=== PATIENT | female | born 1980 | race Two or more races ===

== ENCOUNTER 2024-05-30 12:58 | Outpatient (AMB) | payer OTHER, SELFPAY ==
--- NOTE | 2024-05-30 13:00 | AM.OFFWIN_ITS ---
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 While every effort has been made to ensure accuracy, echo technician errors may have been included. The patient is a 44 year old female who presents to the clinic today with 17 days menstruation. She reports that she was worried about bleeding for a prolonged period of time, and on MondayMay 24, she was seen in the emergency room as a result. She had labs obtained including a CBC which was normal and negative for anemia, as well as a test which was negative. She was evaluated by a leaf tier who did a pelvic exam and advised her that she may be perimenopausal. She was advised to follow up with her primary care or gynecology. She is in the process of switching primary care providers, and has a new patient visit established for June 13 with her new primary care provider. On calling her primary care office about the follow up, she was advised to be seen in the walk-in clinic. She continues to bleed routinely, but it is not a heavy flow. She denies any cramping, pain, fever, or other vaginal discharge. She does report that her sister had a hysterectomy at 43 years old but that was related to abnormal cells. She herself has had an abnormal Pap smear in the past approximately 2 years ago, but in the last couple [facility] which was normal. She denies lightheadedness dizziness. PFSH Social History Patient Tobacco Use Status: Former Tobacco user Review of Systems Const All systems reviewed & are unremarkable except as noted in HPI and below Physical Exam Vital Signs: Last Vital Signs Pulse 76 05/30/24 13:01 BP 122/84 05/30/24 13:01 Pulse Ox 99 05/30/24 13:01 Oxygen Delivery Method Room Air 05/30/24 13:01 BMI result Body Mass Index 25.6 Const General: cooperative, healthy appearing, comfortable, no acute distress and well developed Orientation/consciousness: patient oriented x3 Limitations: no limitations Eyes General: appearance normal, both eyes and all related structures Neck Neck: Yes normal visual inspection Resp Effort & Inspection: normal respiratory effort and able to speak in complete sentences Auscultation: clear to auscultation bilaterally Cardio Rate: regular rate Rhythm: regular rhythm Heart sounds: normal S1 and S2 GI Inspection: Yes normal to inspection Palpation (GI): Soft to palpation and nontender Skin General skin exam: no rashes or lesions noted Neuro General: patient oriented x3 Extrem General: Yes normal to inspection Assessment & Plan Assessment & Plan (1) Menorrhagia: Code(s): N92.0 - Excessive and frequent menstruation with regular cycle Qualifiers: Menorrhagia type: premenopausal Qualified Code(s): N92.4 - Excessive bleeding in the premenopausal period Plan: test has already been obtained by the emergency room, so we deferred repeating that at this time as well as CBC which was recently obtained and normal. Reviewed reason to seek re-evaluation and emergency room including soaking through 1 heavy pad or tampon in 1 hour with or without symptoms of lightheadedness or dizziness. Advised patient to keep appointment with PCP. 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 Given that this is a walk-in clinic we are unable to order pelvic ultrasound for this condition due to lack of available follow up. We are reassured by the fact that her appointment with her primary care is 2 weeks from today. Advised patient that she may contact the office to determine if there is a cancellation that she may be able to be seen sooner. Advised follow up as needed with worsening symptoms. Advised patient to consider NSAIDs should she develop cramping. Plan See above for full details and plan. Coding Level of Care Code Est Pt Level 3 (70620) Diagnoses Excessive bleeding in premenopausal period N92.4 Menorrhagia type: premenopausal
[2024-05-30 13:01] VITALS: BP 122/84; PULSE 76; O2SAT 99; BMI 25.6
== END 2024-05-30 13:52 | disposition home or self-care (01) ==
PROVIDERS: Visit Provider Registered Nurse
DX: N92.4 Excessive bleeding in the premenopausal period (principal)

== ENCOUNTER → 2024-05-30 12:58 | Outpatient (BNVA) | payer OTHER, SELFPAY | PROVIDERS: Visit Provider Registered Nurse | DX: N92.4 Excessive bleeding in the premenopausal period (principal) | CPT/HCPCS: 99212 ==

== ENCOUNTER 2024-06-13 13:11 | Outpatient (AMB) | payer OTHER, SELFPAY ==
--- NOTE | 2024-06-13 13:03 | MHC.PC.OV ---
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 Intake Note: New patient visit Crnp Required: No Allergies No Known Allergies Allergy (Verified 06/13/24 13:17) Medication List - Last Reconciled 06/13/24 by Va Fleming PA-C No Known Home Meds Tobacco use date assessed: 06/13/24 Dental Screening Dental Screen Date: 06/13/24 Did you have a dental visit in the last 12 months?: No Did you have a dental problem in the last 6 months where you did not have access to dental care?: No Was dental information given to patient?: Patient has dentist HPI 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 I recently received a message from urgent care requesting a referral to Gynecology for patient's menorrhagia as she did not previously have a PCP. This was placed on 06/03 and she is booked for 07/15. She states she recently had a period for 25 days. She has never had an abnormal period or period like this in past. 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 She states that this has been giving her some stress. Sister has stage 1 breast ca at 45. She is BRCA negative. Father had lupus and hypothyroid and MA. [facility] Medical History (Updated 06/13/24 @ 13:38 by Va Fleming PA-C) Gestational diabetes Surgical History (Updated 06/13/24 @ 13:21 by Yane Andrade CMA) H/O section S/P removal of left ovary Family History (Updated 06/13/24 @ 13:20 by Yane Andrade CMA) Father HTN (hypertension) Heart attack Rosanna's disease Lupus (systemic lupus erythematosus) Mother HTN (hypertension) Sister Breast cancer Rosanna's disease Paternal Grandmother Rosanna's disease Other Substance use Social History Housing: House Patient Tobacco Use Status: Former Tobacco user Cigarette Packs Per Day: 10 Years Smoked: 10 e-Cigarette/Vaping Use: Never Used Second Hand Smoke Exposure: No service: No Current occupational status: employed 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 1. Little interest or pleasure in doing things: not at all 2. Feeling down, depressed, or hopeless: not at all 3. Trouble falling or staying asleep, or sleeping too much: not at all 4. Feeling tired or having little energy: not at all 5. Poor appetite or overeating: not at all 6. Feeling bad about yourself - or that you are a failure or have let yourself or your family down: not at all 7. Trouble concentrating on things, such as reading the newspaper or watching television: not at all 8. Moving or speaking so slowly that other people could have noticed. Or the opposite - being so fidgety or restless that you have been moving around a lot more than usual: not at all 9. Thoughts that you would be better off or of hurting yourself in some way: not at all Total score: 0 Depression Screening Interpretation: Negative Depression Screening Done: Yes 03153 - PHQ-9 Billing: Yes Source: Developed by Drs. hPilipp Baires, Eleanor Hall, Kan Castorena and colleagues, with an educational vance from [employer] ([employer]). Thrive Questionnaire Date Thrive assessed: 06/10/24 I am a: Patient What is your living situation today?: I have a steady place to live Within the past 12 months, did the food you bought not last and you didn't have the money to get more?: Never true Within the past 12 months, did you worry whether your food would run out before you got money to buy more?: Never true Do you have trouble paying for medicines?: No Do you have trouble getting transportation to medical appointments?: No Do you have trouble paying your heating and electricity bill?: No Do you have trouble taking care of your child, family member or friend?: No Do you have trouble with day-to-day activities such as bathing, preparing meals, shopping, managing finances, etc.?: No Are you currently unemployed and looking for a job?: No Are you interested in more education?: No THRIVE Score: 0 AUDIT C Alcohol Use Questionnaire (AUDIT-C) 1. How often do you have a drink containing alcohol?: Monthly or less 2. How many drinks containing alcohol do you have on a typical day when you are drinking?: 1 or 2 3. How often do you have six or more drinks on one occasion?: Never Total Score: 1 MICH-7 AMB Questionnaire MICH-7 Feeling nervous, anxious, or on edge: 1 = Several days Not being able to stop or control worryin = Nearly every day Worrying too much about different things: 1 = Several days Trouble relaxin = Several days Being so restless that it is hard to sit still: 3 = Nearly every day Becoming easily annoyed or irritable: 0 = Not at all Feeling afraid as if something awful might happen: 0 = Not at all Total MICH-7 score (0-4 normal; 5-9 mild; 10-14 moderate; 15-21 severe): 9 Source: Developed by Drs. Philipp Baires, Eleanor Hall, Kan Castorena and colleagues, with an educational vance from [employer] ([employer]). MICH-7 Assessment Billing MICH-7 Assessment Tool: MICH-7 Assessment 38380 Physical exam (Primary Care) Vital Signs: Last Vital Signs Pulse 63 06/13/24 13:21 Resp 12 06/13/24 13:21 BP 128/88 06/13/24 13:21 Pulse Ox 99 06/13/24 13:21 Oxygen Delivery Method Room Air 06/13/24 13:21 BMI result Body Mass Index 24.0 Tobacco/Smoking Status: Tobacco use Status Tobacco use date assessed 06/13/24 06/13/24 13:24 Patient Tobacco Use Status Former Tobacco user 06/13/24 13:04 e-Cigarette/Vaping Use Never Used 06/13/24 13:24 Depression Screening Interpretation: Negative Thrive Assessment: Date of Thrive Assessment Date Thrive assessed 06/10/24 06/13/24 13:04 Const Orientation/consciousness: patient oriented x3 HENMT Ears: hearing grossly normal bilaterally and TM's normal bilaterally General nose exam: No nasal polyps present Face and sinus: Yes sinuses nontender Mouth: Normal oral and palatal mucosa present Eyes Pupils: Equal, round and reactive pupils present EOM: EOMs intact bilaterally Neck Neck: Yes full ROM and Yes no lymphadenopathy Thyroid: Thyroid normal Chest Chest palpation & inspection: normal inspection of the chest Resp Auscultation: clear to auscultation bilaterally Cardio Rate: regular rate Rhythm: regular rhythm Heart sounds: S1 normal heart sound present and S2 normal heart sound present Peripheral pulses: Peripheral pulses 2+ throughout GI Other: Soft, nontender Auscultation: normal bowel sounds Rectal Exam - Female: deferred General: Yes no CVA tenderness Back/Spine/Pelvis Other: Nontender Back: no CVA tenderness Skin General skin exam: no rashes or lesions noted Neuro General: patient oriented x3, gait normal, CN's II-XI intact bilaterally and deep tendon reflexes 2+ bilaterally Cranial nerves: Yes Equal, round and reactive pupils present Motor exam (neuro): 5/5 motor strength present throughout Sensory Exam: double simultaneous stimulation for sensation normal Coordination: [id number] test normal and Romberg test negative Extrem General: Yes normal to inspection and Yes full ROM Psych Affect: normal affect Attitude: cooperative Thought process: Normal thought process present Thought content: Normal thought content present Insight: Good insight present (Psych) Judgement: Good judgement present (Psych) Coding Level of Care Code New Pt Prev Care 40-64y(36576) Diagnoses Encounter for routine history and physical examination Z00.00 Menorrhagia N92.0 Family hx-breast malignancy Z80.3 Additional Codes PHQ-9 - 27879 - PHQ-9 Billing: Yes ([id number]) MICH-7 Assessment Billing - MICH-7 Assessment Tool: MICH-7 Assessment 13976 ([id number]) Assessment & Plan Assessment & Plan (1) Encounter for routine history and physical examination: Code(s): Z00.00 - Encounter for general adult medical examination without abnormal findings Plan: Health maintenance reviewed. Mammogram ordered. She already has an appointment pending with release specialist. Declines flu shot. Labs ordered today. (2) Menorrhagia: Code(s): N92.0 - Excessive and frequent menstruation with regular cycle Category: Medical Plan: Labs ordered. Ultrasound ordered. (3) Family hx-breast malignancy: Code(s): Z80.3 - Family history of malignant neoplasm of breast Category: Medical Plan: Mammogram ordered Orders: Orders US pelvic and transvaginal Today N92.0 - Excessive and frequent menstruation with regular cycle, Z80.3 - Family history of malignant neoplasm of breast Comprehensive Met. Panel Today Z00.00 - Encounter for general adult medical examination without abnormal findings Complete Blood Count Auto Diff Today Z00.00 - Encounter for general adult medical examination without abnormal findings TSH reflex Free T4 Today Z00.00 - Encounter for general adult medical examination without abnormal findings Lipid Panel Today Z00.00 - Encounter for general adult medical examination without abnormal findings Ferritin Today Z00.00 - Encounter for general adult medical examination without abnormal findings MM screening mammo BI Today Z12.31 - Encounter for screening mammogram for malignant neoplasm of breast Vitamin B12 and Folate Today Z00.00 - Encounter for general adult medical examination without abnormal findings UA CC w/rflx Micro + Cult Today Z00.00 - Encounter for general adult medical examination without abnormal findings, Z13.220 - Encounter for screening for lipoid disorders Hemoglobin A1c Today O24.419 - Gestational diabetes mellitus in , unspecified control, Z00.00 - Encounter for general adult medical examination without abnormal findings IRON PROFILE Today Z00.00 - Encounter for general adult medical examination without abnormal findings
[2024-06-13 13:21] VITALS: BP 128/88; PULSE 63; RESP 12; O2SAT 99; BMI 24.0
== END 2024-06-13 13:47 | disposition home or self-care (01) ==
LOC: HO.HMCFM 13:11
PROVIDERS: Visit Provider Physician Assistant
DX: Z00.00 Encounter for general adult medical examination without abnormal findings (principal); N92.0 Excessive and frequent menstruation with regular cycle; Z80.3 Family history of malignant neoplasm of breast

== ENCOUNTER → 2024-06-13 13:11 | Outpatient (BNVA) | payer OTHER, SELFPAY | PROVIDERS: Visit Provider Physician Assistant | DX: Z00.00 Encounter for general adult medical examination without abnormal findings (principal); N92.0 Excessive and frequent menstruation with regular cycle; Z80.3 Family history of malignant neoplasm of breast | CPT/HCPCS: 96127; 99386 ==

== ENCOUNTER 2024-06-18 07:45 | Outpatient (REF) | payer OTHER, SELFPAY ==
[2024-06-18 11:18] LABS: MANUAL DIFF FLAG NO
[2024-06-18 11:24] LABS: Basophils Percent Auto 1.4 % (0-2); Eosinophils Absolute Auto 0.1 X10*3/uL (0.0-0.4); Eosinophils Percent Auto 3.4 % (0-4); Hematocrit 37.7 % (37.0-47.0); Hemoglobin 12.9 g/dl (12.0-16.0); Lymphocytes Percent Auto 32.8 % (20-40); Mean Corpuscular HGB Conc 34.2 g/dl (31.0-35.0); Mean Corpuscular Hemoglobin 32.2 pg (27.0-33.0); Mean Platelet Volume 10.6 fL (9.4-12.3); Monocytes Absolute Auto 0.3 X10*3/uL (0.1-1.2); Monocytes Percent Auto 10.9 % (2-11); Neutrophils Absolute Auto 1.5 x10*3/uL (2.0-8.3); Neutrophils Percent Auto 51.5 % (45-73); Platelet Count 252 X10*3/uL (160-400); Red Blood Count 4.01 X10*6/uL (4.20-5.50); White Blood Count 2.9 X10*3/uL (4.8-10.8)
[2024-06-18 11:37] LABS: Appearance Urine Clear; Color Urine Yellow; Glucose Urine UA Negative (Negative); Leukocyte Esterase Urine Negative (Negative); Nitrite Urine Negative (Negative); Urine Blood Negative (Negative); Urine Ketones Trace mg/dL (Negative); Urine Protein Negative (Neg-Trace)
[2024-06-18 11:45] LABS: Estimated Average Glucose 82 mg/dL; Hemoglobin A1C 89.4698 umol/L; Hemoglobin A1c % 4.5 % (<6.0); Total Hemoglobin (HGBA1C) 3443.9718 umol/L
[2024-06-18 11:48] LABS: Alanine Aminotransferase 31 U/L (0-31); Albumin Level 4.2 g/dL (3.5-5.0); Alkaline Phosphatase 49 U/L (39-117); Anion Gap 13 (12-20); Aspartate Amino Transferase 32 U/L (5-31); Bilirubin Total 0.3 mg/dL (0.0-1.0); Blood Urea Nitrogen 5 mg/dL (9-16); Calcium 8.7 mg/dL (8.4-10.2); Carbon Dioxide 23 mmol/L (22-29); Chloride 101 mmol/L (96-108); Cholesterol 183 mg/dL (<200); Estimated Glomerular Filt Rate > 60; Glucose Random 87 mg/dL (60-115); HDL Cholesterol 52 mg/dL (>40); Iron 55 mcg/dL (30-160); LDL Cholesterol Calculated 101 mg/dL (<100); Percent Iron Saturation 20 % (15-50); Sodium 133 mmol/L (135-145); Total Iron Binding Capacity 270 mcg/dL (228-428); Total Protein 6.8 g/dL (6.5-8.0); Triglycerides 152 mg/dL (<150); Unsaturated Iron Binding 215 ug/dL
[2024-06-18 12:10] LABS: Ferritin 29 ng/mL (10-250); TSH reflex Free T4 0.63 uIU/mL (0.32-4.0)
[2024-06-18 12:12] LABS: Vitamin B12 581 pg/mL (200-900)
== END 2024-06-18 07:46 | disposition home or self-care (01) ==
LOC: HO.WFDLDS 07:45
PROVIDERS: Visit Provider Physician Assistant
DX: Z00.00 Encounter for general adult medical examination without abnormal findings (principal); Z13.220 Encounter for screening for lipoid disorders; O24.419 Gestational diabetes mellitus in pregnancy, unspecified control
CPT/HCPCS: 36415; 80053; 80061; 81003; 82607; 82728; 82746; 83036; 83540; 84443; 85025

== ENCOUNTER 2024-07-01 13:24 | Outpatient (REF) | payer OTHER, SELFPAY ==
--- NOTE | ~2024-07-01 | MM_ITS ---
EXAMINATION: MM SCREENING DIGITAL BREAST TOMOSYNTHESIS, BILATERAL CLINICAL INFORMATION: Screening. Asymptomatic. COMPARISON: Mammography: Baseline. TECHNIQUE: Digital breast mammography with tomosynthesis is performed in both the craniocaudal and mediolateral oblique views along with computer-aided detection (CAD). FINDINGS: The breasts are heterogeneously dense, which may obscure small masses (ACR BI-RADS breast composition Category c). There are no significant masses, abnormal calcifications, or other abnormalities. MM/MM tomosynthesis screening BI IMPRESSION: No mammographic evidence of malignancy. ASSESSMENT: BI-RADS BI-RADS 1 - Negative RECOMMENDATION: Routine annual mammography screening. 1 year F/U This examination should not preclude the clinical evaluation of a suspicious palpable abnormality. This patient's information was entered into a reminder system with a target due date for their next mammogram. Electronically signed by: Precious Lorenz DO 07/11/2024 09:22 AM HALIE
== END 2024-07-01 13:25 | disposition home or self-care (01) ==
LOC: HO.MAMMO 13:24
PROVIDERS: PCP Physician Assistant; Visit Provider Physician Assistant
DX: Z12.31 Encounter for screening mammogram for malignant neoplasm of breast (principal)
CPT/HCPCS: 77063; 77067

== ENCOUNTER → 2024-07-01 13:45 | Outpatient (BNV) | payer OTHER, SELFPAY | PROVIDERS: PCP Physician Assistant; Visit Provider Internal Medicine | DX: Z12.31 Encounter for screening mammogram for malignant neoplasm of breast (principal) | CPT/HCPCS: 77063; 77067 ==

== ENCOUNTER 2024-07-15 09:16 | Outpatient (REF) | payer OTHER, SELFPAY ==
[2024-07-16 03:05] LABS: CT PCR NOT DETECTED (Not Detect.); NG PCR NOT DETECTED (Not Detect.)
[2024-07-16 10:56] LABS: Bacterial Vaginosis PCR NEGATIVE (Negative); Candida Group PCR NOT DETECTED (Not Detect); Candida glab krusei PCR NOT DETECTED (Not Detect); Trichomonas vaginalis PCR NOT DETECTED (Not Detect)
== END 2024-07-15 09:17 | disposition home or self-care (01) ==
LOC: HO.LAB 09:16
PROVIDERS: PCP Physician Assistant; Visit Provider Advanced Practice Midwife
DX: N92.0 Excessive and frequent menstruation with regular cycle (principal); N89.8 Other specified noninflammatory disorders of vagina; Z90.721 Acquired absence of ovaries, unilateral; Z98.891 History of uterine scar from previous surgery
CPT/HCPCS: 0352U; 87491; 87591; 99202; 99459

== ENCOUNTER 2024-07-15 09:16 | Outpatient (AMB) | payer OTHER, SELFPAY ==
[2024-07-15 09:22] VITALS: BP 110/63; BMI 24.8
--- NOTE | 2024-07-15 09:22 | A.OFFVIS_ITS ---
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 She then had a child then then 12 years ago she had trouble getting for her 2nd child so she had in vitro that developed it initially as a twin in she lost 1 twin carried own 2nd and had a for that at [facility]. She is healthy she normally gets regular cycles because she was deemed to be in fertile she does not need control. (her right fallopian tube was blocked). In May she started with a light. And never went away and then it became much heavier needing to change her pad every 2 hours. She bled in total for about 29 days she was evaluated by her primary care provider she also went to [facility] they sent her from the [facility] ER to [facility] where she was seen and examined by the mail courier on duty there. Her bleeding is not very heavy by the time she was seen there and so she did not warrant an ultrasound she had an pelvic exam findings testing for STDs was negative. There was nothing of note found there. Her primary care provider ordered her blood work to check for anemia as well as other tests and also ordered a pelvic ultrasound which has yet to happen. It is scheduled for this Monday. Patient feels she is in good health she was under lot of stress with work it she thought might have had something to do everything and she has taken some time off from work at the moment. She is not having any associated pain in the ever did she has no other some symptoms. 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 REPLACED BY [facility] Medical History Gestational diabetes Surgical History (Updated 07/15/24 @ 10:27 by Idalia Paz CNM) H/O section S/P removal of left ovary Family History Father HTN (hypertension) Heart attack Rosanna's disease Lupus (systemic lupus erythematosus) Mother HTN (hypertension) Sister Breast cancer Rosanna's disease Paternal Grandmother Rosanna's disease Other Substance use Social History Housing: House Patient Tobacco Use Status: Former Tobacco user Cigarette Packs Per Day: 10 Years Smoked: 10 e-Cigarette/Vaping Use: Never Used Second Hand Smoke Exposure: No service: No Current occupational status: employed 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 Also had for 2nd 12 years ago [facility] conception by IVF. Menses has started during this exam very normal menstrual fluid. Cervix pink clear healthy appearing long close thick mobile nontender uterus midposition mobile nontender not enlarged no adnexal tenderness or enlargement very good tone with Kegel. External Female Exam: normal external appearance Speculum Exam - Vagina: normal appearance of the vagina and normal vaginal discharge Speculum Exam - Cervix: normal appearance of the cervix Bimanual exam- vagina & uterus: normal bimanual exam, uterine size normal, consistency normal, uterine mobility normal, uterine shape normal and non-tender Bimanual Exam- Adnexa, other: normal adnexae, no masses and No adnexal tenderness Results Reviewed Results Reviewed: Name: Sara Toribio Age/Sex: 44/F : 1980 Unit#: [id number] Attend Dr: Va Fleming Re06/18/24 Status: DEP REF Location: [facility] Disch: SPEC : [id number] CYNDEE: 06/18/24 STATUS: COMP REQ : [id number] RECD: 06/18/[address]: Va Fleming COMP: 06/18/24 ENTERED: 06/18/[address]: ORDERED: CBC Auto Diff Test Result Flag Reference WBC 2.9 L 4.8-10.8 X10*3/uL RBC 4.01 L 4.20-5.50 X10*6/uL HGB 12.9 12.0-16.0 g/dl HCT 37.7 37.0-47.0 % MCV 94.0 80.0-98.0 fL MCH 32.2 27.0-33.0 pg MCHC 34.2 31.0-35.0 g/dl RDW 13.0 11.0-16.0 % PLT 252 160-400 X10*3/uL MPV 10.6 9.4-12.3 fL Neut Pct Auto 51.5 45-73 % ImGran Pct Auto 0.0 0.0-0.4 % Lymp Pct Auto 32.8 20-40 % [place] Pct Auto 10.9 2-11 % Eos Pct Auto 3.4 0-4 % Baso Pct Auto 1.4 0-2 % NRBC Pct Auto 0.0 0.0-0.2 /100WBC ANC Neut Abs # 1.5 L 2.0-8.3 x10*3/uL ImGran Abs Auto 0.00 0.00-0.03 X10*3/uL Lymph Abs Auto 1.0 L 1.2-4.9 X10*3/uL [place] Abs Auto 0.3 0.1-1.2 X10*3/uL Eos Abs Auto 0.1 0.0-0.4 X10*3/uL Baso Abs Auto 0.0 0.0-0.2 X10*3/uL NRBC Abs Auto 0.000 0.0-0.012 X10*3/uL Name: Sara Toribio Age/Sex: 44/F : 1980 Unit#: [id number] Attend Dr: Va Fleming Re06/18/24 Status: DEP REF Location: [facility] Disch: SPEC : [id number] CYNDEE: 06/18/24 STATUS: COMP REQ : [id number] RECD: 06/18/[address]: Va Fleming COMP: 06/18/24 ENTERED: 06/18/[address]: ORDERED: CMP, IRON PROF, Ferritin, Lipid Panel, TSH Rflx Test Result Flag Reference Sodium 133 L 135-145 mmol/L Potassium 4.0 3.3-5.1 mmol/L CL 101 96-108 mmol/L CO2 23 22-29 mmol/L Gap 13 12-20 BUN 5 L 9-16 mg/dL Creat 0.62 0.5-1.4 mg/dL eGFR > 60 Chronic Kidney Disease: Estimated GFR < 60 mL/min/1.73m2 Severe Kidney Disease: Estimated GFR < 15 mL/min/1.73m2 Glucose, Random 87 60-115 mg/dL CA 8.7 8.4-10.2 mg/dL Iron 55 30-160 mcg/dL TIBC 270 228-428 mcg/dL Saturation 20 15-50 % UIBC 215 ug/dL Ferritin 29 10-250 ng/mL Total Bili 0.3 0.0-1.0 mg/dL AST (GOT) 32 H 5-31 U/L ALT (GPT) 31 0-31 U/L Protein, Total 6.8 6.5-8.0 g/dL Alb 4.2 3.5-5.0 g/dL Triglyceride 152 H <150 mg/dL Desirable Triglyceride: less than 150 mg/dL Borderline High Triglyceride 150-199 mg/dL High Triglyceride: 200-499 mg/dL Very High Triglyceride: greater than or equal to 5OO mg/dL Cholesterol 183 <200 mg/dL Desirable Cholesterol: less than 200 mg/dL Borderline High Cholesterol: 200-239 mg/dL High Cholesterol: greater than 239 mg/dL LDL Calculated 101 H <100 mg/dL Desirable LDL: less than 100 mg/dL Near Optimal/Above Optimal LDL: 110-129 mg/dL Borderline High LDL: 130-159 mg/dL High LDL: 160-189 mg/dL Very High LDL: greater than or equal to 190 mg/dL HDL 52 >40 mg/dL Desirable HDL: greater than 40 mg/dL Note: This HDL assay may give artificially low results in patients with liver disease. Alk Phos 49 39-117 U/L TSH 0.63 0.32-4.0 uIU/mL END OF REPORT Assessment & Plan Assessment & Plan (1) Menorrhagia: Code(s): N92.0 - Excessive and frequent menstruation with regular cycle Category: Medical (2) S/P removal of left ovary: Code(s): Z90.721 - Acquired absence of ovaries, unilateral Category: Surgical (3) H/O section: Code(s): Z98.891 - History of uterine scar from previous surgery Category: Surgical Plan Patient is a 44-year-old . 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 She then had a child then then 12 years ago she had trouble getting for her 2nd child so she had in vitro that developed it initially as a twin in she lost 1 twin carried own 2nd and had a for that at [facility]. She is healthy she normally gets regular cycles because she was deemed to be in fertile she does not need control. (her right fallopian tube was blocked). In May she started with a light. And never went away and then it became much heavier needing to change her pad every 2 hours. She bled in total for about 29 days she was evaluated by her primary care provider she also went to [facility] they sent her from the [facility] ER to [facility] where she was seen and examined by the mail courier on duty there. Her bleeding is not very heavy by the t krishna she was seen there and so she did not warrant an ultrasound she had an pelvic exam findings testing for STDs was negative. There was nothing of note found there. Her primary care provider ordered her blood work to check for anemia as well as other tests and also ordered a pelvic ultrasound which has yet to happen. It is scheduled for this Monday. Patient feels she is in good health she was under lot of stress with work it she thought might have had something to do everything and she has taken some time off from work at the moment. She is not having any associated pain in the ever did she has no other some symptoms. 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 Reviewed with the patient all that has been done which is been very thorough. Discussed possibilities of any abnormal finding and what might necessary to evaluated from there if there is any finding we will consider next steps but to be extremely thorough 1 might consider an endometrial biopsy to be very very sure this no abnormal cells growing in her endometrium. She is going to have the ultrasound this week though she rescheduled it because of her menses which have started January this visit she is to hopefully scheduled within the I did tell her the results and readings of the ultrasounds can sometimes take 5-6 weeks these days. And the results will be going to her primary care provider given that and so there was no gapin care patient, will be seen to possibly have an endometrial biopsy after the results of the ultrasound are back. If she never has an abnormal bleeding episode like last 1 again and she has absolutely no abnormal findings on the ultrasound she may elect to cancel planned endometrial biopsy. I also discussed the possibility that there maybe abnormal findings that require referral to [facility] such as a complex cyst or something. Also I discussed possible solutions for disorder bleeding patterns including you so progestin only OCPs progestin bearing IUD such as Mirena she is familiar with these. She had a CBC done through her primary care provider but there are additional labs still system she is going to verify with her [facility] office that she has done all the labs she needs to do. Orders: Orders CT NG by PCR Today N89.8 - Other specified noninflammatory disorders of vagina Bacterial Vaginosis Panel Today N89.8 - Other specified noninflammatory disorders of vagina Coding Level of Care Code New Pt Level 3 (14914) Diagnoses Menorrhagia N92.0 S/P removal of left ovary Z90.721 H/O section Z98.891
== END 2024-07-15 10:36 | disposition home or self-care (01) ==
LOC: HO.HWSM 09:16
PROVIDERS: PCP Physician Assistant; Visit Provider Advanced Practice Midwife
DX: N92.0 Excessive and frequent menstruation with regular cycle (principal); Z90.721 Acquired absence of ovaries, unilateral; Z98.891 History of uterine scar from previous surgery
CPT/HCPCS: 99203

== ENCOUNTER 2024-07-17 10:47 | Outpatient (REF) | payer OTHER, SELFPAY ==
--- NOTE | ~2024-07-17 | US_ITS ---
EXAMINATION: US PELVIS CLINICAL INFORMATION: Excessive and frequent menstruation COMPARISON: None available. TECHNIQUE: Ultrasound of the pelvis is performed using both transabdominal and transvaginal transducers along with Doppler. Transvaginal imaging is performed due to inadequate visualization transabdominally. FINDINGS: Uterus: The uterus is anteverted and measures 10.1 x 4.2 x 5.5 cm. Punctate calcification in the right uterine body at 7 x 5 mm noted. No suspicious mass or fibroid. The double wall endometrial thickness is normal at 5 mm. Adnexa: Both ovaries are visualized. There is normal color flow to the adnexa. There is no ovarian torsion. There is no pelvic ascites or fluid collection. Right ovary measures 2.9 x 2.0 x 2.3 cm. Volume 7.0 mL. Left ovary measures 1.7 x 1.8 x 1.7 cm. Volume 2.7 mm. US/US pelvic complete IMPRESSION: Unremarkable exam. Uterus appears normal and the endometrial echo complex appears normal. A source of this patient's heavy menstruation has not been discovered on this exam. Electronically signed by: Benito Dominguez MD 07/17/2024 03:53 PM EST
== END 2024-07-17 10:48 | disposition home or self-care (01) ==
LOC: HO.US 10:47
PROVIDERS: PCP Physician Assistant; Visit Provider Physician Assistant
DX: N92.0 Excessive and frequent menstruation with regular cycle (principal); Z80.3 Family history of malignant neoplasm of breast
CPT/HCPCS: 76856

== ENCOUNTER 2024-10-30 10:39 | Outpatient (AMB) | payer SELFPAY ==
[2024-10-30 10:39] VITALS: BP 116/70; BMI 24.6
--- NOTE | 2024-10-30 10:39 | MHC.OFFVIS ---
Vital Signs 10/30/24 10:39 Height 5 ft 3 in Weight 139 lb BMI 24.6 BP 116/70 Intake Visit Reasons: EMB/ Ultrasound Follow up Professional Volleyball Player Required: No Professional Volleyball Player Services: Professional Volleyball Player Present Information Interpreted: clinical only Seismograph Operator Helper: Seismograph Operator Helper Present Allergies No Known Allergies Allergy (Verified 10/30/24 10:41) Medication List - Last Reconciled 10/30/24 by Idalia Paz CNM No Known Home Meds Is last menstrual period known: Yes Last menstrual period: 10/29/24 HPI HPI EMB/ Ultrasound Follow up: Details: Patient is here to review the ultrasound she had done that was ordered by her primary care provider and they were had also been a plan for possible endometrial biopsy if it were necessary. She had had 30 days of abnormal bleeding in May and she had seen urgent care and then her primary who had ordered blood work she was not anemic and also a pelvic ultrasound and the ultrasound was done in July and it was completely normal see the ultrasound please for the results there was no possible source found for the abnormal bleeding of interest the ultrasound also showed 2 ovaries and the patient is quite certain that she only has 1 ovary at her left 1 was removed years ago and she had very many ultrasounds when she was going through IVF so she was acutely aware all the time of her status with that she had not been able to get which is why she went through IVF. It any rate ever since July all of her periods have been completely normal she had fact has a period today and they are completely normal and she is not having any issues whatsoever. She had been sure of her last Pap smear and had looked it up for me and told me the date at the time [facility]. She also recalled in our discussion the she had started the HPV vaccine in the past but then became busy and did not go back for the 09 07 and so she is going to look up the dates of that vaccine in her records and follow through accordingly depending on what she learns and the dates. Reviewed all of the findings and she is going to investigate the discrepant ovarian finding with her primary care provider. 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 Current occupational exposures/hazards: No Cognitive needs: No Hearing needs: No Vision needs: No Female Reproductive History Menstrual Age of Menarche: 15 Duration of menses: 3-5 days Date of last menstrual period: 10/29/24 control method: none Total pregnancies: 2 Full term: 2 Physical Exam Vital Signs: Last Vital Signs BP 116/70 10/30/24 10:39 BMI result Body Mass Index 24.6 Const Other: Deferred today patient [facility] rf design [facility] she does not need the endometrial biopsy that we had previously discussed we reviewed her bleeding pattern which now is normal and her past history and recommendations for future.. Results Reviewed Results Reviewed: Patient: Sara Toribio MR#: [id number] : 1980 Acct:[id number] Age/Sex: 44 / F ADM Date: 07/17/24 Loc: HO.US Attending Dr: Va Fleming PA-C Ordering Physician: Va Fleming Date of Service: 07/17/24 Procedure(s): US pelvic complete Accession Number(s): [id number] cc: Va Fleming~ EXAMINATION: US PELVIS CLINICAL INFORMATION: Excessive and frequent menstruation COMPARISON: None available. TECHNIQUE: Ultrasound of the pelvis is performed using both transabdominal and transvaginal transducers along with Doppler. Transvaginal imaging is performed due to inadequate visualization transabdominally. FINDINGS: Uterus: The uterus is anteverted and measures 10.1 x 4.2 x 5.5 cm. Punctate calcification in the right uterine body at 7 x 5 mm noted. No suspicious mass or fibroid. The double wall endometrial thickness is normal at 5 mm. Adnexa: Both ovaries are visualized. There is normal color flow to the adnexa. There is no ovarian torsion. There is no pelvic ascites or fluid collection. Right ovary measures 2.9 x 2.0 x 2.3 cm. Volume 7.0 mL. Left ovary measures 1.7 x 1.8 x 1.7 cm. Volume 2.7 mm. US/US pelvic complete IMPRESSION: Unremarkable exam. Uterus appears normal and the endometrial echo complex appears normal. A source of this patient's heavy menstruation has not been discovered on this exam. Electronically signed by: Benito Dominguez MD 07/17/2024 03:53 PM [facility] Dictated By: Benito Dominguez MD Signed By: <Electronically signed by Benito Dominguez MD in OV> 07/17/24 1553 DD/ 1123 TD/TT: 07/17/24 1126 Earth Burner: Name: Sara Toribio Age/Sex: 44/F : 1980 Unit#: [id number] Attend Dr: Va Fleming Re06/18/24 Status: DEP REF Location: [facility] Disch: SPEC : [id number] CYNDEE: 06/18/24 STATUS: COMP REQ : [id number] RECD: 06/18/[address]: Va Fleming COMP: 06/18/24 ENTERED: 06/18/[address] [facility] [address]: ORDERED: CBC Auto Diff Test Result Flag Reference WBC 2.9 L 4.8-10.8 X10*3/uL RBC 4.01 L 4.20-5.50 X10*6/uL HGB 12.9 12.0-16.0 g/dl HCT 37.7 37.0-47.0 % MCV 94.0 80.0-98.0 fL MCH 32.2 27.0-33.0 pg MCHC 34.2 31.0-35.0 g/dl RDW 13.0 11.0-16.0 % PLT 252 160-400 X10*3/uL MPV 10.6 9.4-12.3 fL Neut Pct Auto 51.5 45-73 % ImGran Pct Auto 0.0 0.0-0.4 % Lymp Pct Auto 32.8 20-40 % [place] Pct Auto 10.9 2-11 % Eos Pct Auto 3.4 0-4 % Baso Pct Auto 1.4 0-2 % NRBC Pct Auto 0.0 0.0-0.2 /100WBC ANC Neut Abs # 1.5 L 2.0-8.3 x10*3/uL ImGran Abs Auto 0.00 0.00-0.03 X10*3/uL Lymph Abs Auto 1.0 L 1.2-4.9 X10*3/uL [place] Abs Auto 0.3 0.1-1.2 X10*3/uL Eos Abs Auto 0.1 0.0-0.4 X10*3/uL Baso Abs Auto 0.0 0.0-0.2 X10*3/uL NRBC Abs Auto 0.000 0.0-0.012 X10*3/uL END OF REPORT Assessment & Plan Assessment & Plan (1) Menorrhagia: Comment: Has resolved and not recurred, Code(s): N92.0 - Excessive and frequent menstruation with regular cycle Category: Medical (2) S/P removal of left ovary: Code(s): Z90.721 - Acquired absence of ovaries, unilateral Category: Surgical (3) H/O section: Code(s): Z98.891 - History of uterine scar from previous surgery Category: Surgical (4) Family hx-breast malignancy: Comment: Patient had negative mammogram 07/01/2024, yearly mammograms from now on discussed with the patient-10/30/24. Code(s): Z80.3 - Family history of malignant neoplasm of breast Category: Medical Plan Patient is here to review the ultrasound she had done that was ordered by her primary care provider and they were had also been a plan for possible endometrial biopsy if it were necessary. She had had 30 days of abnormal bleeding in May and she had seen urgent care and then her primary who had ordered blood work she was not anemic and also a pelvic ultrasound and the ultrasound was done in July and it was completely normal see the ultrasound please for the results there was no possible source found for the abnormal bleeding of interest the ultrasound also showed 2 ovaries and the patient is quite certain that she only has 1 ovary at her left 1 was removed years ago and she had very many ultrasounds when she was going through IVF so she was acutely aware all the time of her status with that she had not been able to get which is why she went through IVF. It any rate ever since July all of her periods have been completely normal she had fact has a period today and they are completely normal and she is not having any issues whatsoever. She had been sure of her last Pap smear and had looked it up for me and told me the date at the time [facility]. She also recalled in our discussion the she had started the HPV vaccine in the past but then became busy and did not go back for the 09 07 and so she is going to look up the dates of that vaccine in her records and follow through accordingly depending on what she learns and the dates. Reviewed all of the findings and she is going to investigate the discrepant ovarian finding with her primary care provider. I asked her to double check the Pap smear to be sure that the HPV was also negative and that if the HPV was positive she would need a Pap done at least a year from the last 1 at the very least. She will check on that as well. Otherwise we can see her for any problems and if everything was negative/negative then she would not be due for a Pap smear for 5 years. She will follow-up with her primary care provider as well and continue with primary care with her. Additionally I did not note a mammogram order in the system so I will place an order for her and I have placed a call to her to discuss this and we can see her next year for an annual exam when she would be due for it. She called me back and I told her about this and it turns out she had a negative mammogram in June. We will see her for annual exam. Orders: Orders MM tomosynthesis screening BI Today N92.0 - Excessive and frequent menstruation with regular cycle, Z12.31 - Encounter for screening mammogram for malignant neoplasm of breast, Z80.3 - Family history of malignant neoplasm of breast, Z90.721 - Acquired absence of ovaries, unilateral, Z98.891 - History of uterine scar from previous surgery Coding Level of Care Code Est Pt Level 3 (84880) Diagnoses Menorrhagia N92.0 S/P removal of left ovary Z90.721 H/O section Z98.891 Family hx-breast malignancy Z80.3
== END 2024-10-30 11:32 | disposition home or self-care (01) ==
LOC: HO.HWSM 10:39
PROVIDERS: PCP Physician Assistant; Visit Provider Advanced Practice Midwife
DX: N92.0 Excessive and frequent menstruation with regular cycle (principal); Z90.721 Acquired absence of ovaries, unilateral; Z98.891 History of uterine scar from previous surgery; Z80.3 Family history of malignant neoplasm of breast
CPT/HCPCS: 99213

== ENCOUNTER → 2024-10-30 10:39 | Outpatient (BNVA) | payer SELFPAY | PROVIDERS: PCP Physician Assistant; Visit Provider Advanced Practice Midwife | DX: N92.0 Excessive and frequent menstruation with regular cycle (principal); Z80.3 Family history of malignant neoplasm of breast; Z90.721 Acquired absence of ovaries, unilateral; Z98.891 History of uterine scar from previous surgery | CPT/HCPCS: 99212 ==